=== PATIENT | female | born 1995 | race African-American/Black ===

== ENCOUNTER 2022-01-19 15:13 | Emergency (ER) | payer OTHER ==
[~2022-01-19] VITALS: Ht 165.1 cm; Wt 72.6 kg
[2022-01-19] MEDS ORDERED: IBUP-1955 PO (16:08)
[2022-01-19] MEDS ORDERED: AZIT250T13 PO (16:08)
[2022-01-19] MEDS ORDERED: ACETAMINOPHEN 325 MG TABLET ONE (16:16)
[2022-01-19] MEDS ORDERED: AZITHROMYCIN 250 MG TABLET ONE (16:16)
[2022-01-19] MEDS: ACETAMINOPHEN 325 MG TABLET PO ONE (16:24)
[2022-01-19] MEDS: AZITHROMYCIN 250 MG TABLET PO ONE (16:24)
== END 2022-01-19 16:26 | disposition home or self-care (01) ==
LOC: ER 15:13
DX: J03.80 Acute tonsillitis due to other specified organisms (principal); B96.89 Other specified bacterial agents as the cause of diseases classified elsewhere
CPT/HCPCS: A4663; Q0144